=== PATIENT | male | born 1960 | race Asian ===

== ENCOUNTER 2017-02-16 08:36 | Emergency (ER) | payer MEDICAID, OTHER ==
[2017-02-16] VITALS (7 sets, daily range): BP systolic 152–174; BP diastolic 75–86
[~2017-02-16] VITALS: Ht 167.6 cm; Wt 62.7 kg
[~2017-02-16 08:36] MED LIST: ASPI81TA2 PO; B CO1CAP4 PO; CARV12.580 PO; DOCU250C91 PO; GLIP5TAB11 PO; SIMV-260 PO
[2017-02-16 08:52] LABS: GLUCOSE,POINT OF CARE 120 MG/DL (70-110)
[2017-02-16 09:12] LABS: BASOPHILS # (AUTO) 0.01 K/uL (0.00-0.20); BASOPHILS % (AUTO) 0.2 % (0.0-2.0); EOSINOPHILS # (AUTO) 0.22 K/uL (0.00-0.70); EOSINOPHILS % (AUTO) 2.73 % (1.0-6.0); LYMPHOCYTES # (AUTO) 1.1 K/uL (1.0-4.8); LYMPHOCYTES % (AUTO) 14.5 % (22.0-44.0); MEAN CORPUSCULAR HEMOGLOBIN 30.5 pg (26.0-34.0); MEAN CORPUSCULAR HGB CONC 34.7 G/dL (31.0-37.0); MEAN CORPUSCULAR VOLUME 88 fL (80-100); MONOCYTES # (AUTO) 0.5 K/uL (0.1-1.0); MONOCYTES % (AUTO) 6.5 % (2.0-9.0); NEUTROPHILS % (AUTO) 76.1 % (40.0-70.0); PLATELET COUNT (AUTO) 257 K/uL (150-450); RED BLOOD CELL COUNT(AUTO) 2.25 MIL/uL (4.50-5.90); RED CELL DISTRIBUTION WIDTH 14.4 % (11.5-14.5); WHITE BLOOD COUNT (AUTO) 7.9 K/uL (4.5-11.0)
[2017-02-16 09:16] LABS: HEMOGLOBIN 6.9 g/dL (13.5-17.5)
[2017-02-16 09:17] LABS: HEMATOCRIT 19.8 % (41-53)
[2017-02-16 09:19] LABS: CALCIUM, TOTAL 8.4 mg/dL (8.8-10.5); CREATININE 7.32 mg/dL (0.60-1.30); POTASSIUM 3.6 mmol/L (3.5-5.1)
== END 2017-02-16 14:10 | disposition home or self-care (01) ==
LOC: EMS 08:37
DX: D64.9 Anemia, unspecified (principal); I13.2 Hypertensive heart and chronic kidney disease with heart failure and with stage 5 chronic kidney disease, or end stage renal disease; E11.22 Type 2 diabetes mellitus with diabetic chronic kidney disease; N18.5 Chronic kidney disease, stage 5
CPT/HCPCS: 36415; 36430; 80048; 82962; 85025; 86850; 86900; 86901; 86920; 99285; P9016